=== PATIENT | male | born 1955 | race Caucasian/White ===

== ENCOUNTER 2019-04-14 10:14 | Day surgery (SDC) | payer BC ==
[2019-04-14] MEDS ORDERED: MIDAZOLAM 1 MG/ML 2 ML INJ ×2 (11:53)
[2019-04-14] MEDS ORDERED: FENTAnyl 50 MCG/ML VIAL (11:53)
== END 2019-04-14 12:43 | disposition home or self-care (01) ==
LOC: GIL 10:14
DX: Z12.11 Encounter for screening for malignant neoplasm of colon (principal); K64.4 Residual hemorrhoidal skin tags; K57.30 Diverticulosis of large intestine without perforation or abscess without bleeding; Z86.010 Personal history of colon polyps; I10 Essential (primary) hypertension
CPT/HCPCS: 45378